=== PATIENT | female | born 2005 | race African-American/Black ===

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

== ENCOUNTER 2023-01-16 20:49 | Emergency (ER) | payer OTHER ==
[2023-01-16] MEDS ORDERED: Ondansetron PF 4 MG/2 ML Vial ONE (21:16)
[2023-01-16 21:49] LABS: #Monocytes 0.7 thou/uL (0.11-0.59); #Neutrophils 5.7 thou/uL (1.40-6.50); %Basophils 0.3 % (0.0-1.0); %Eosinophils 0.2 % (0.0-10.0); %Lymphocytes 31.5 % (28.0-48.0); %Monocytes 7.6 % (0.0-4.0); %Neutrophils 60.1 % (31.0-61.0); Hematocrit 41.5 % (36.0-47.0); Hemoglobin 13.1 g/dL (12.0-16.0); Mean Corpuscular HGB CONC 31.6 g/dL (32.0-36.0); Mean Corpuscular Hemoglobin 21.7 pg (25.0-35.0); Mean Corpuscular Volume 68.8 fl (78.0-98.0); Mean Platelet Volume 10.7 fL (7.4-10.4); Platelet Count 444 10x3/uL (130-400); RBC Distribution Width 19.1 % (11.5-14.5); Red Blood Cell (RBC) Count 6.03 mill/uL (4.00-5.20); White Blood Cell (WBC) Count 9.4 10x3/uL (4.8-10.8)
[2023-01-16 22:00] LABS: SARS-CoV-2 NAA Rapid Test Not Detected (NotDetected)
[2023-01-16] MEDS ORDERED: Ketorolac Tromethamine 30 MG/ML VIAL ONE (22:03)
[2023-01-16 22:18] LABS: Bilirubin Negative (Negative); Blood, Urine 3+ (Negative); CAUTI Indications for Culture Pelvic or flank pain; Clarity Turbid (Clear); Glucose, Urine (Dipstick) Normal (Negative); Ketone, Urine 60 mg/dL (Negative); Leukocyte Negative Leu/uL (Negative); Mucous/LPF Rare LPF (<2+); Nitrite Negative (Negative); Pregnancy Test - Urine (BHCG) Negative (Negative); Pregu Control Background? CLEAR/WHITE (CLR/WHITE); Pregu Control Bar Appear? YES (CONTROL BAR); Protein, Urine (Dipstick) 50 mg/dL (Neg-Trace); RBC/HPF Greater than 50 HPF (0-3); Specific Gravity 1.034 (1.002-1.036); Specific Gravity, Urine 1.034 (1.002-1.036); Urobilinogen Normal mg/dL (Less than 2)
[2023-01-16 22:23] LABS: ALT (SGPT) 18 U/L (8-55); Albumin 5.1 g/dL (3.5-5.0); Alkaline Phosphatase 70 U/L (40-100); Anion Gap 19 mmol/L (10-20); BUN (Urea Nitrogen) 23 mg/dL (8.4-21.0); Bilirubin, Total 0.5 mg/dL (0.2-1.2); Calc. Creatinine Clearance 0 mL/min (70-130); Calcium 10.7 mg/dL (7.8-10.44); Carbon Dioxide 20 mmol/L (22-29); Chloride 104 mmol/L (98-107); Estimated GFR 73; Globulin 4.3 g/dL (2.4-3.5); Glucose 109 mg/dL (70-105); Lipase 12 U/L (8-78); Potassium 3.1 mmol/L (3.5-5.1); Protein, Total 9.4 g/dL (6.0-8.3); Sodium 140 mmol/L (136-145)
[2023-01-16 22:25] LABS: Bacteria/HPF Rare-Few HPF (None Seen); Trichomonas/HPF 1+ HPF (None Seen); WBC/HPF 0-3 HPF (0-3)
[2023-01-16 22:27] LABS: Urine Culture Reflex No No
[2023-01-16 22:35] LABS: AST (SGOT) 21 U/L (5-30)
[2023-01-16] MEDS ORDERED: Promethazine 25 MG TAB ONE (23:07)
== END 2023-01-16 23:19 | disposition home or self-care (01) ==
LOC: ERS 20:49
DX: R11.2 Nausea with vomiting, unspecified (principal); I10 Essential (primary) hypertension; F17.290 Nicotine dependence, other tobacco product, uncomplicated; Z20.822 Contact with and (suspected) exposure to COVID-19
CPT/HCPCS: 36415; 80053; 81001; 81025; 83690; 85025; 96361; 96374; 96375; J1885; J2405; Q0169

== ENCOUNTER 2023-01-19 09:19 | Emergency (ER) | payer OTHER ==
[2023-01-19] MEDS ORDERED: Famotidine/PF 20 mg/2ml Vial ONE (10:09)
[2023-01-19] MEDS ORDERED: diphenhydrAMINE 50 MG/ML VIAL ONE (10:09)
[2023-01-19] MEDS ORDERED: Metoclopramide HCl 10 MG/2 ML VIAL ONE (10:09)
[2023-01-19 10:14] LABS: #Monocytes 0.4 thou/uL (0.11-0.59); #Neutrophils 3.2 thou/uL (1.40-6.50); %Basophils 0.5 % (0.0-1.0); %Eosinophils 0.5 % (0.0-10.0); %Lymphocytes 40.7 % (28.0-48.0); %Monocytes 6.7 % (0.0-4.0); %Neutrophils 51.3 % (31.0-61.0); Hematocrit 38.9 % (36.0-47.0); Hemoglobin 12.6 g/dL (12.0-16.0); Mean Corpuscular HGB CONC 32.4 g/dL (32.0-36.0); Mean Corpuscular Hemoglobin 22.5 pg (25.0-35.0); Mean Corpuscular Volume 69.3 fl (78.0-98.0); Mean Platelet Volume 10.4 fL (7.4-10.4); Platelet Count 377 10x3/uL (130-400); RBC Distribution Width 18.5 % (11.5-14.5); Red Blood Cell (RBC) Count 5.61 mill/uL (4.00-5.20); White Blood Cell (WBC) Count 6.2 10x3/uL (4.8-10.8)
[2023-01-19] MEDS ORDERED: Ketorolac Tromethamine 30 MG/ML VIAL ONE (10:19)
[2023-01-19 10:27] LABS: BHCG - Serum Negative (NEGATIVE); Pregs Control Background? CLEAR/WHITE (CLR/WHITE); Pregs Control Bar Appear? YES (CONTROL BAR)
[2023-01-19 10:36] LABS: Anisocytosis MODERATE=16-30 cells HPF (0-5); CellaVision Operator ID lab.dlt; Microcytosis SLIGHT = 6-15 cells HPF (0-5); Ovalocytes SLIGHT = 2-5 cells HPF (0-1); Platelet Adequacy Comment Platelets Normal; Polychromasia SLIGHT = 2-3 cells HPF (0-2); Schistocytes SLIGHT = 2-5 cells HPF (0-1); Target Cells SLIGHT = 2-5 cells HPF (0-1)
[2023-01-19 10:46] LABS: Bacteria/HPF None Seen HPF (None Seen); Bilirubin Negative (Negative); Blood, Urine 3+ (Negative); CAUTI Indications for Culture Dysuria,urgency,freq; Clarity Clear (Clear); Glucose, Urine (Dipstick) Normal (Negative); Ketone, Urine 100 mg/dL (Negative); Leukocyte Negative Leu/uL (Negative); Nitrite Negative (Negative); Protein, Urine (Dipstick) 30 mg/dL (Neg-Trace); RBC/HPF 0-3 HPF (0-3); Specific Gravity, Urine 1.025 (1.002-1.036); Urobilinogen Normal mg/dL (Less than 2); WBC/HPF 0-3 HPF (0-3); pH, Urine 7.5 (5.0-9.0)
[2023-01-19 10:50] LABS: Urine Culture Reflex No No
[2023-01-19 10:50] LABS: ALT (SGPT) 18 U/L (8-55); AST (SGOT) 23 U/L (5-30); Albumin 5.1 g/dL (3.5-5.0); Alkaline Phosphatase 69 U/L (40-100); Anion Gap 15 mmol/L (10-20); BUN (Urea Nitrogen) 13 mg/dL (8.4-21.0); Bilirubin, Total 0.9 mg/dL (0.2-1.2); Calc. Creatinine Clearance 0 mL/min (70-130); Calcium 10.2 mg/dL (7.8-10.44); Carbon Dioxide 24 mmol/L (22-29); Chloride 100 mmol/L (98-107); Estimated GFR 87; Globulin 3.9 g/dL (2.4-3.5); Glucose 104 mg/dL (70-105); Lipase 16 U/L (8-78); Magnesium 2.3 mg/dL (1.7-2.2); Potassium 3.1 mmol/L (3.5-5.1); Sodium 136 mmol/L (136-145)
[2023-01-19] MEDS ORDERED: Potassium Chloride 20 MEQ TAB ONE (11:15)
== END 2023-01-19 11:34 | disposition home or self-care (01) ==
LOC: ERS 09:19
DX: A59.00 Urogenital trichomoniasis, unspecified (principal); E87.6 Hypokalemia; R11.2 Nausea with vomiting, unspecified; R19.7 Diarrhea, unspecified; I10 Essential (primary) hypertension; F17.290 Nicotine dependence, other tobacco product, uncomplicated
CPT/HCPCS: 80053; 81001; 83690; 83735; 84703; 85025; 93005; 96361; 96374; 96375; J1200; J1885; J2765; S0028

== ENCOUNTER 2023-01-24 16:49 | Emergency (ER) | payer OTHER ==
[~2023-01-24 16:49] MED LIST changes: -Iopamidol-370 76% 500 ML 1 ML ONE; +Iopamidol-370 76% 500 ML MDV (1 ML CHARGE) ONE
[2023-01-24] MEDS ORDERED: Ondansetron PF 4 MG/2 ML Vial ONE (18:16)
[2023-01-24] MEDS ORDERED: Pantoprazole 40 MG VIAL ONE (18:18)
[2023-01-24] MEDS ORDERED: Dicyclomine 20 MG/2 ML VIAL ONE (18:18)
[2023-01-24 18:24] LABS: Bacteria/HPF None Seen HPF (None Seen); Bilirubin Negative (Negative); Blood, Urine Negative (Negative); CAUTI Indications for Culture Dysuria,urgency,freq; Clarity Clear (Clear); Glucose, Urine (Dipstick) Normal (Negative); Ketone, Urine 40 mg/dL (Negative); Leukocyte Negative Leu/uL (Negative); Nitrite Negative (Negative); Protein, Urine (Dipstick) 30 mg/dL (Neg-Trace); WBC/HPF 0-3 HPF (0-3)
[2023-01-24 18:25] LABS: Urine Culture Reflex No No
[2023-01-24 18:29] LABS: Amphetamine Not Detected (NotDetected); Barbiturates Screen Not Detected (NotDetected); Benzodiazepine Screen Not Detected (NotDetected); Cocaine Metabolite Screen Not Detected (NotDetected); Methadone Not Detected (NotDetected); Methamphetamine Not Detected (NotDetected); Opiate Screen Not Detected (NotDetected); Oxycodone Screen Not Detected (NotDetected); Phencyclidine (PCP) Not Detected (NotDetected); THC/Cannabinoid Screen Detected (NotDetected); Tricyclic Screen Not Detected (NotDetected)
[2023-01-24 18:39] LABS: BHCG - Serum Negative (NEGATIVE); Pregs Control Background? CLEAR/WHITE (CLR/WHITE); Pregs Control Bar Appear? YES (CONTROL BAR)
[2023-01-24 18:40] LABS: #Eosinphils 0.1 thou/uL (0.0-0.7); #Monocytes 0.8 thou/uL (0.11-0.59); %Basophils 0.5 % (0.0-1.0); %Eosinophils 0.9 % (0.0-10.0); %Lymphocytes 48.9 % (28.0-48.0); %Monocytes 10.2 % (0.0-4.0); %Neutrophils 39.2 % (31.0-61.0); Hematocrit 38.6 % (36.0-47.0); Hemoglobin 12.6 g/dL (12.0-16.0); Mean Corpuscular HGB CONC 32.6 g/dL (32.0-36.0); Mean Corpuscular Hemoglobin 22.6 pg (25.0-35.0); Mean Corpuscular Volume 69.3 fl (78.0-98.0); Mean Platelet Volume 10.7 fL (7.4-10.4); Platelet Count 351 10x3/uL (130-400); Red Blood Cell (RBC) Count 5.57 mill/uL (4.00-5.20); White Blood Cell (WBC) Count 7.6 10x3/uL (4.8-10.8)
[2023-01-24 19:06] LABS: ALT (SGPT) 15 U/L (8-55); AST (SGOT) 28 U/L (5-30); Albumin 5.1 g/dL (3.5-5.0); Alkaline Phosphatase 64 U/L (40-100); Anion Gap 17 mmol/L (10-20); BUN (Urea Nitrogen) 9 mg/dL (8.4-21.0); Bilirubin, Total 0.6 mg/dL (0.2-1.2); Calc. Creatinine Clearance 0 mL/min (70-130); Calcium 10.4 mg/dL (7.8-10.44); Carbon Dioxide 20 mmol/L (22-29); Chloride 101 mmol/L (98-107); Estimated GFR 91; Globulin 3.5 g/dL (2.4-3.5); Glucose 94 mg/dL (70-105); Lipase 19 U/L (8-78); Potassium 3.4 mmol/L (3.5-5.1); Protein, Total 8.6 g/dL (6.0-8.3); Sodium 135 mmol/L (136-145)
[2023-01-24 19:10] LABS: Anisocytosis SLIGHT = 6-15 cells HPF (0-5); Burr Cells SLIGHT = 2-5 cells HPF (0-1); CellaVision Operator ID LAB.KB; Elliptocytes SLIGHT = 2-5 cells HPF (0-1); Hypochromia SLIGHT = 6-15 cells HPF (0-5); Microcytosis SLIGHT = 6-15 cells HPF (0-5); Platelet Adequacy Comment Platelets Normal; Polychromasia SLIGHT = 2-3 cells HPF (0-2)
== END 2023-01-24 20:45 | disposition home or self-care (01) ==
LOC: ERS 16:49
DX: F12.188 Cannabis abuse with other cannabis-induced disorder (principal); I10 Essential (primary) hypertension; J45.909 Unspecified asthma, uncomplicated; F17.210 Nicotine dependence, cigarettes, uncomplicated
CPT/HCPCS: 74177; 80053; 80306; 81001; 83690; 84703; 85025; 93005; 96361; 96372; 96374; 96375; C9113; J2405; Q9967

== ENCOUNTER 2023-02-15 10:58 | Emergency (ER) | payer OTHER, SELFPAY ==
[2023-02-15] MEDS ORDERED: Ondansetron PF 4 MG/2 ML Vial ONE (11:27)
[2023-02-15] MEDS ORDERED: Acetaminophen 500 MG TAB ONE (11:27)
[2023-02-15] MEDS ORDERED: LORazepam 2 MG/ML SYR.(CARPUJECT) ONE (11:28)
[2023-02-15 12:56] LABS: SARS-CoV-2 NAA Rapid Test Not Detected (NotDetected)
== END 2023-02-15 13:20 | disposition home or self-care (01) ==
LOC: ERS 10:58
DX: F41.1 Generalized anxiety disorder (principal); E86.0 Dehydration; R11.2 Nausea with vomiting, unspecified; I10 Essential (primary) hypertension; F17.210 Nicotine dependence, cigarettes, uncomplicated; F17.290 Nicotine dependence, other tobacco product, uncomplicated
CPT/HCPCS: 96361; 96374; 96375; J2060; J2405

== ENCOUNTER 2023-02-16 10:35 | Inpatient (IN) | payer SELFPAY ==
[2023-02-16 11:13] LABS: #Monocytes 0.3 thou/uL (0.11-0.59); #Neutrophils 2.5 thou/uL (1.40-6.50); %Basophils 0.4 % (0.0-1.0); %Eosinophils 0.6 % (0.0-10.0); %Monocytes 6.4 % (0.0-4.0); Hematocrit 37.5 % (36.0-47.0); Mean Corpuscular Hemoglobin 23.1 pg (25.0-35.0); Mean Corpuscular Volume 72.1 fl (78.0-98.0); Mean Platelet Volume 9.6 fL (7.4-10.4); Platelet Count 329 10x3/uL (130-400); RBC Distribution Width 20.2 % (11.5-14.5); White Blood Cell (WBC) Count 4.8 10x3/uL (4.8-10.8)
[2023-02-16 11:39] LABS: ALT (SGPT) 17 U/L (8-55); AST (SGOT) 30 U/L (5-30); Albumin 4.9 g/dL (3.5-5.0); Alkaline Phosphatase 62 U/L (40-100); Anion Gap 16 mmol/L (10-20); BUN (Urea Nitrogen) 10 mg/dL (8.4-21.0); Bilirubin, Total 0.8 mg/dL (0.2-1.2); Calc. Creatinine Clearance 0 mL/min (70-130); Calcium 9.7 mg/dL (7.8-10.44); Carbon Dioxide 21 mmol/L (22-29); Chloride 105 mmol/L (98-107); Estimated GFR 92; Globulin 3.6 g/dL (2.4-3.5); Glucose 114 mg/dL (70-105); Lipase 13 U/L (8-78); Potassium 3.7 mmol/L (3.5-5.1); Protein, Total 8.5 g/dL (6.0-8.3); Sodium 138 mmol/L (136-145)
[2023-02-16 11:44] LABS: Bacteria/HPF None Seen HPF (None Seen); Bilirubin Negative (Negative); Blood, Urine 2+ (Negative); CAUTI Indications for Culture Pelvic or flank pain; Clarity Extra Turbid (Clear); Glucose, Urine (Dipstick) Normal (Negative); Ketone, Urine 40 mg/dL (Negative); Leukocyte Negative Leu/uL (Negative); Nitrite Negative (Negative); Protein, Urine (Dipstick) 30 mg/dL (Neg-Trace); Specific Gravity, Urine 1.029 (1.002-1.036); Squamous Epithelial 21-50 HPF (0-3); WBC/HPF None Seen HPF (0-3)
[2023-02-16 11:45] LABS: Pregnancy Test - Urine (BHCG) Negative (Negative); Pregu Control Background? CLEAR/WHITE (CLR/WHITE); Pregu Control Bar Appear? YES (CONTROL BAR); Specific Gravity 1.029 (1.002-1.036)
[2023-02-16 11:46] LABS: Urine Culture Reflex No No
[2023-02-16 11:46] LABS: Anisocytosis MODERATE=16-30 cells HPF (0-5); CellaVision Operator ID LAB.KB; Microcytosis SLIGHT = 6-15 cells HPF (0-5); Ovalocytes SLIGHT = 2-5 cells HPF (0-1); Platelet Adequacy Comment Platelets Normal; Polychromasia SLIGHT = 2-3 cells HPF (0-2)
[2023-02-16] MEDS ORDERED: Ondansetron PF 4 MG/2 ML Vial ONE ×2 (12:37→13:56)
[2023-02-16] MEDS ORDERED: Acetaminophen 325 MG TAB ONE (12:37)
[2023-02-16 15:00] LABS: Lactic Acid 1.2 mmol/L (0.5-2.2)
[2023-02-16 15:06] LABS: Acetaminophen Less than 10 mcg/mL (10.0-30.0); Alcohol Less than 10.0 mg/dL (Less than 10); Salicylate Less than 8.0 mg/dL (15.0-30.0)
[2023-02-16 15:48] LABS: Amphetamine Not Detected (NotDetected); Barbiturates Screen Not Detected (NotDetected); Benzodiazepine Screen Detected (NotDetected); Cocaine Metabolite Screen Not Detected (NotDetected); Methadone Not Detected (NotDetected); Methamphetamine Not Detected (NotDetected); Opiate Screen Not Detected (NotDetected); Oxycodone Screen Not Detected (NotDetected); Phencyclidine (PCP) Not Detected (NotDetected); THC/Cannabinoid Screen Detected (NotDetected); Tricyclic Screen Not Detected (NotDetected)
[2023-02-16] MEDS ORDERED: Acetaminophen 325 MG TAB PO PRN (15:53)
[2023-02-16] MEDS ORDERED: Mag-Al 1200 mg/1200 mg/30 ML UDCUP PO PRN (15:53)
[2023-02-16] MEDS ORDERED: Ondansetron PF 4 MG/2 ML Vial IVP PRN ×2 (15:53→16:15)
[2023-02-16] MEDS ORDERED: Lorazepam 2 MG/ML VIAL SLOW IVP PRN (15:53)
[2023-02-16] MEDS ORDERED: Ondansetron ODT 4 MG TAB SL PRN (16:15)
[2023-02-16] MEDS: Sucralfate 1 GM TAB PO SCH ×2 (17:25→20:02)
[2023-02-16] MEDS: Pantoprazole 40 MG VIAL IVP SCH (17:25)
[2023-02-16] MEDS: Metoclopramide HCl 10 MG/2 ML VIAL IVP PRN (17:25)
[2023-02-16] MEDS: Sodium Chloride 0.9% 1,000 ML IV SCH (17:25)
[2023-02-16] MEDS: Nicotine 7 MG PATCH TD SCH (17:40)
[2023-02-16 18:33] VITALS: BMI 25.6
[2023-02-16] MEDS: busPIRone HCl 5 MG TAB PO SCH (20:02)
[2023-02-16] MEDS: Melatonin 3 MG TAB PO PRN (20:02)
[2023-02-17] MEDS: Sodium Chloride 0.9% 1,000 ML IV SCH ×2 (00:28→12:21)
[2023-02-17] MEDS: Metoclopramide HCl 10 MG/2 ML VIAL IVP PRN ×4 (00:28→17:46)
[2023-02-17 06:09] LABS: #Eosinphils 0.1 thou/uL (0.0-0.7); #Monocytes 0.4 thou/uL (0.11-0.59); #Neutrophils 2.3 thou/uL (1.40-6.50); %Basophils 0.3 % (0.0-1.0); %Eosinophils 1.9 % (0.0-10.0); %Lymphocytes 53.9 % (28.0-48.0); %Monocytes 7.1 % (0.0-4.0); %Neutrophils 36.5 % (31.0-61.0); Hematocrit 31.8 % (36.0-47.0); Hemoglobin 9.9 g/dL (12.0-16.0); Mean Corpuscular HGB CONC 31.1 g/dL (32.0-36.0); Mean Corpuscular Hemoglobin 22.9 pg (25.0-35.0); Mean Corpuscular Volume 73.4 fl (78.0-98.0); Platelet Count 271 10x3/uL (130-400); RBC Distribution Width 19.9 % (11.5-14.5); Red Blood Cell (RBC) Count 4.33 mill/uL (4.00-5.20); White Blood Cell (WBC) Count 6.2 10x3/uL (4.8-10.8)
[2023-02-17 06:33] LABS: Anion Gap 12 mmol/L (10-20); BUN (Urea Nitrogen) 5 mg/dL (8.4-21.0); Calc. Creatinine Clearance 115 mL/min (70-130); Calcium 8.6 mg/dL (7.8-10.44); Carbon Dioxide 23 mmol/L (22-29); Chloride 107 mmol/L (98-107); Estimated GFR 110; Glucose 92 mg/dL (70-105); Potassium 3.2 mmol/L (3.5-5.1); Sodium 139 mmol/L (136-145)
[2023-02-17] MEDS: busPIRone HCl 5 MG TAB PO SCH ×3 (07:53→19:43)
[2023-02-17] MEDS: Sucralfate 1 GM TAB PO SCH ×5 (07:53→19:43)
[2023-02-17] MEDS ORDERED: Potassium Chloride 20 MEQ TAB PO SCH (09:00)
[2023-02-17] MEDS: Nicotine 7 MG PATCH TD SCH (17:16)
[2023-02-17] MEDS: Pantoprazole 40 MG VIAL IVP SCH (17:39)
[2023-02-17] MEDS: Melatonin 3 MG TAB PO PRN (19:43)
[2023-02-18] MEDS: Metoclopramide HCl 10 MG/2 ML VIAL IVP PRN ×2 (01:25→07:56)
[2023-02-18] MEDS: Sodium Chloride 0.9% 1,000 ML IV SCH ×2 (01:28→09:59)
[2023-02-18] MEDS: Sucralfate 1 GM TAB PO SCH (07:56)
[2023-02-18] MEDS: busPIRone HCl 5 MG TAB PO SCH (07:56)
[2023-02-18 08:33] VITALS: BP 132/79; TEMP 98.1
[2023-02-18 09:07] LABS: #Eosinphils 0.1 thou/uL (0.0-0.7); #Monocytes 0.5 thou/uL (0.11-0.59); #Neutrophils 3.2 thou/uL (1.40-6.50); %Basophils 0.5 % (0.0-1.0); %Eosinophils 0.9 % (0.0-10.0); %Lymphocytes 42.2 % (28.0-48.0); %Monocytes 7.4 % (0.0-4.0); %Neutrophils 48.7 % (31.0-61.0); Hematocrit 36.5 % (36.0-47.0); Hemoglobin 11.5 g/dL (12.0-16.0); Mean Corpuscular HGB CONC 31.5 g/dL (32.0-36.0); Mean Corpuscular Hemoglobin 22.5 pg (25.0-35.0); Mean Corpuscular Volume 71.6 fl (78.0-98.0); Mean Platelet Volume 10.2 fL (7.4-10.4); Platelet Count 345 10x3/uL (130-400); RBC Distribution Width 20.3 % (11.5-14.5); White Blood Cell (WBC) Count 6.6 10x3/uL (4.8-10.8)
[2023-02-18 09:29] LABS: Anion Gap 17 mmol/L (10-20); BUN (Urea Nitrogen) 5 mg/dL (8.4-21.0); Calc. Creatinine Clearance 112 mL/min (70-130); Calcium 9.7 mg/dL (7.8-10.44); Carbon Dioxide 18 mmol/L (22-29); Chloride 107 mmol/L (98-107); Estimated GFR 107; Glucose 99 mg/dL (70-105); Potassium 3.4 mmol/L (3.5-5.1); Sodium 139 mmol/L (136-145)
[2023-02-18 10:04] LABS: Anisocytosis MARKED = >30 cells HPF (0-5); Burr Cells SLIGHT = 2-5 cells HPF (0-1); CellaVision Operator ID LAB.CMB; Large Platelets 2.7 % (0-5); Macrocytosis SLIGHT = 6-15 cells HPF (0-5); Ovalocytes SLIGHT = 2-5 cells HPF (0-1); Platelet Adequacy Comment Platelets Normal; Platelet Clumps 0.9 % (0-5); Polychromasia SLIGHT = 2-3 cells HPF (0-2); RBC Morphology 2
== END 2023-02-18 12:15 | disposition home or self-care (01) | DRG 392 ==
LOC: ERS 10:35 → T4-A 14:26 → OBSVTOIN 02-17 11:48
PROVIDERS: ADMIT Family Medicine; ATTEND Hospitalist
DX: K59.00 Constipation, unspecified (principal); R45.851 Suicidal ideations; F41.9 Anxiety disorder, unspecified; K21.9 Gastro-esophageal reflux disease without esophagitis; J45.909 Unspecified asthma, uncomplicated; Z79.899 Other long term (current) drug therapy; Z83.3 Family history of diabetes mellitus; F17.200 Nicotine dependence, unspecified, uncomplicated; I10 Essential (primary) hypertension; R11.2 Nausea with vomiting, unspecified; F12.20 Cannabis dependence, uncomplicated; R31.0 Gross hematuria; Z71.6 Tobacco abuse counseling
CPT/HCPCS: 36415; 74176; 80048; 80053; 80306; 80307; 81001; 81025; 83605; 83690; 84443; 85025; 96361; 96374; 96375; 96376; C9113; G0378; J2060; J2405; J2765; J7050

== ENCOUNTER 2023-09-04 09:54 | Emergency (ER) | payer SELFPAY ==
[2023-09-04 10:55] LABS: #Basophils Less than 0.03 10x3/uL (0.0-0.2); %Basophils 0.1 % (0.0-1.0); %Eosinophils 0.5 % (0.0-10.0); %Lymphocytes 38.4 % (28.0-48.0); %Monocytes 6.1 % (0.0-4.0); %Neutrophils 54.6 % (31.0-61.0); Hematocrit 39.9 % (36.0-47.0); Hemoglobin 12.8 g/dL (12.0-16.0); Mean Corpuscular HGB CONC 32.1 g/dL (32.0-36.0); Mean Corpuscular Hemoglobin 22.6 pg (25.0-35.0); Mean Corpuscular Volume 70.5 fL (78.0-98.0); Mean Platelet Volume 9.7 fL (7.4-10.4); Platelet Count 408 10x3/uL (130-400); RBC Distribution Width 17.7 % (11.5-14.5); Red Blood Cell (RBC) Count 5.66 mill/uL (4.00-5.20)
[2023-09-04 11:19] LABS: ALT (SGPT) 19 U/L (8-55); AST (SGOT) 23 U/L (5-30); Albumin 4.4 g/dL (3.5-5.0); Alkaline Phosphatase 74 U/L (40-100); Anion Gap 18 mmol/L (10-20); BUN (Urea Nitrogen) 7 mg/dL (8.4-21.0); Bilirubin, Total 0.8 mg/dL (0.2-1.2); Calc. Creatinine Clearance 0 mL/min (70-130); Calcium 10.2 mg/dL (7.8-10.44); Carbon Dioxide 19 mmol/L (22-29); Chloride 105 mmol/L (98-107); Estimated GFR 106; Globulin 3.8 g/dL (2.4-3.5); Glucose 97 mg/dL (70-105); Lipase 14 U/L (8-78); Potassium 3.1 mmol/L (3.5-5.1); Protein, Total 8.2 g/dL (6.0-8.3); Sodium 139 mmol/L (136-145)
[2023-09-04 11:28] LABS: Elliptocytes SLIGHT = 2-5 cells HPF (0-1); Microcytosis MODERATE=15-30 cells HPF (0-5); Ovalocytes SLIGHT = 2-5 cells HPF (0-1); Platelet Adequacy Comment Platelets Increased; Polychromasia SLIGHT = 2-3 cells HPF (0-2)
[2023-09-04] MEDS ORDERED: Potassium Chloride 20 MEQ TAB ONE (11:38)
[2023-09-04 11:53] LABS: BHCG - Serum Negative (NEGATIVE); Pregs Control Background? CLEAR/WHITE (CLR/WHITE); Pregs Control Bar Appear? YES (CONTROL BAR)
[2023-09-04 12:16] LABS: Pregnancy Test - Urine (BHCG) Negative (Negative)
[2023-09-04 12:17] LABS: Pregu Control Background? CLEAR/WHITE (CLR/WHITE); Pregu Control Bar Appear? YES (CONTROL BAR)
[2023-09-04 12:19] LABS: Bacteria/HPF None Seen HPF (None Seen); Bilirubin Negative (Negative); Blood, Urine 2+ (Negative); CAUTI Indications for Culture Pelvic or flank pain; Clarity Clear (Clear); Glucose, Urine (Dipstick) Normal (Negative); Ketone, Urine 100 mg/dL (Negative); Leukocyte Negative Leu/uL (Negative); Nitrite Negative (Negative); Protein, Urine (Dipstick) 50 mg/dL (Neg-Trace); Urobilinogen Normal mg/dL (Less than 2); WBC/HPF 0-3 HPF (0-3)
[2023-09-04 12:23] LABS: Urine Culture Reflex No No
== END 2023-09-04 13:13 | disposition home or self-care (01) ==
LOC: ERS 09:54
DX: R11.2 Nausea with vomiting, unspecified (principal); E87.6 Hypokalemia; I10 Essential (primary) hypertension; E03.9 Hypothyroidism, unspecified; Z55.0 Illiteracy and low-level literacy
CPT/HCPCS: 36415; 80053; 81001; 81025; 83690; 84703; 85025; 99284

== ENCOUNTER 2023-10-29 08:12 | Emergency (ER) | payer OTHER, SELFPAY ==
[2023-10-29] MEDS ORDERED: Ondansetron PF 4 MG/2 ML Vial ONE (08:23)
[2023-10-29] MEDS ORDERED: Ketorolac Tromethamine 30 MG (1 mL) VIAL ONE (08:23)
[2023-10-29] MEDS ORDERED: Lorazepam 2 MG/ML VIAL ONE (08:24)
[2023-10-29 09:19] LABS: BHCG - Serum Negative (NEGATIVE)
[2023-10-29 09:20] LABS: Pregs Control Background? CLEAR/WHITE (CLR/WHITE); Pregs Control Bar Appear? YES (CONTROL BAR)
[2023-10-29 09:25] LABS: ALT (SGPT) 35 U/L (8-55); AST (SGOT) 25 U/L (5-34); Albumin 4.4 g/dL (3.5-5.0); Alkaline Phosphatase 73 U/L (40-100); Anion Gap 17 mmol/L (10-20); BUN (Urea Nitrogen) 27 mg/dL (7.0-18.7); Bilirubin, Total 0.7 mg/dL (0.2-1.2); CK (CPK) 88 U/L (29-168); Calc. Creatinine Clearance 0 mL/min (70-130); Calcium 9.9 mg/dL (7.8-10.44); Carbon Dioxide 19 mmol/L (22-29); Chloride 109 mmol/L (98-107); Estimated GFR 98; Globulin 3.9 g/dL (2.4-3.5); Glucose 106 mg/dL (70-105); Lipase 11 U/L (8-78); Potassium 3.4 mmol/L (3.5-5.1); Protein, Total 8.3 g/dL (6.0-8.3); Sodium 142 mmol/L (136-145)
[2023-10-29 09:40] LABS: #Basophils Less than 0.03 10x3/uL (0.0-0.2); #Eosinphils Less than 0.03 10x3/uL (0.0-0.7); %Basophils 0.1 % (0.0-1.0); %Eosinophils 0.1 % (0.0-10.0); %Lymphocytes 24.2 % (28.0-48.0); %Monocytes 9.8 % (0.0-4.0); %Neutrophils 65.7 % (31.0-61.0); Hematocrit 37.3 % (36.0-47.0); Hemoglobin 11.9 g/dL (12.0-16.0); Mean Corpuscular HGB CONC 31.9 g/dL (32.0-36.0); Mean Corpuscular Hemoglobin 22.3 pg (25.0-35.0); Mean Corpuscular Volume 69.9 fL (78.0-98.0); Mean Platelet Volume 10.5 fL (7.4-10.4); Platelet Count 355 10x3/uL (130-400); RBC Distribution Width 17.3 % (11.5-14.5); Red Blood Cell (RBC) Count 5.34 mill/uL (4.00-5.20)
[2023-10-29 10:15] LABS: Amphetamine Not Detected (NotDetected); Barbiturates Screen Not Detected (NotDetected); Benzodiazepine Screen Detected (NotDetected); Cocaine Metabolite Screen Not Detected (NotDetected); Methadone Not Detected (NotDetected); Methamphetamine Not Detected (NotDetected); Opiate Screen Not Detected (NotDetected); Oxycodone Screen Not Detected (NotDetected); Phencyclidine (PCP) Not Detected (NotDetected); THC/Cannabinoid Screen Detected (NotDetected); Tricyclic Screen Not Detected (NotDetected)
[2023-10-29 10:16] LABS: Bacteria/HPF 1+ HPF (None Seen); Bilirubin Negative (Negative); Blood, Urine Trace (Negative); CAUTI Indications for Culture Pelvic or flank pain; Clarity Slightly Cloudy (Clear); Glucose, Urine (Dipstick) Normal (Negative); Ketone, Urine 100 mg/dL (Negative); Leukocyte 25 Leu/uL (Negative); Mucous/LPF 2+ LPF (<2+); Nitrite Negative (Negative); Protein, Urine (Dipstick) 70 mg/dL (Neg-Trace); Specific Gravity, Urine 1.039 (1.002-1.036)
[2023-10-29 10:17] LABS: Urine Culture Reflex No No
== END 2023-10-29 12:34 | disposition home or self-care (01) ==
LOC: ERS 08:12
DX: F43.0 Acute stress reaction (principal); F41.9 Anxiety disorder, unspecified; R11.2 Nausea with vomiting, unspecified; I10 Essential (primary) hypertension; Z79.899 Other long term (current) drug therapy
CPT/HCPCS: 36415; 80053; 80306; 81001; 82550; 83690; 84703; 85025; 96361; 96374; 96375; J1885; J2060; J2405

== ENCOUNTER 2023-10-30 14:22 | Emergency (ER) | payer SELFPAY ==
[2023-10-30 16:41] LABS: #Basophils Less than 0.03 10x3/uL (0.0-0.2); #Eosinphils Less than 0.03 10x3/uL (0.0-0.7); %Basophils 0.2 % (0.0-1.0); %Lymphocytes 47.3 % (28.0-48.0); %Monocytes 8.8 % (0.0-4.0); %Neutrophils 43.6 % (31.0-61.0); Hematocrit 37.5 % (36.0-47.0); Hemoglobin 12.1 g/dL (12.0-16.0); Mean Corpuscular HGB CONC 32.3 g/dL (32.0-36.0); Mean Corpuscular Volume 68.3 fL (78.0-98.0); Mean Platelet Volume 10.9 fL (7.4-10.4); Platelet Count 384 10x3/uL (130-400); RBC Distribution Width 16.9 % (11.5-14.5); Red Blood Cell (RBC) Count 5.49 mill/uL (4.00-5.20)
[2023-10-30 16:53] LABS: ALT (SGPT) 26 U/L (8-55); AST (SGOT) 19 U/L (5-34); Albumin 4.3 g/dL (3.5-5.0); Alkaline Phosphatase 74 U/L (40-100); Anion Gap 17 mmol/L (10-20); BUN (Urea Nitrogen) 16 mg/dL (7.0-18.7); Bilirubin, Total 0.8 mg/dL (0.2-1.2); Calc. Creatinine Clearance 0 mL/min (70-130); Calcium 10.1 mg/dL (7.8-10.44); Carbon Dioxide 24 mmol/L (22-29); Chloride 103 mmol/L (98-107); Estimated GFR 103; Globulin 3.8 g/dL (2.4-3.5); Glucose 95 mg/dL (70-105); Lipase 15 U/L (8-78); Protein, Total 8.1 g/dL (6.0-8.3); Sodium 141 mmol/L (136-145)
[2023-10-30 17:13] LABS: Free T4 (Free Thyroxine) 2.48 ng/dL (0.70-1.48); Thyroid Stimulating Hormone Less than 0.0083 uIU/mL (0.35-4.94)
== END 2023-10-30 16:30 | disposition left against medical advice (07) ==
LOC: ERS 14:22
DX: Z53.21 Procedure and treatment not carried out due to patient leaving prior to being seen by health care provider (principal)
CPT/HCPCS: 36415; 80053; 83690; 84439; 84443; 84481; 85025

== ENCOUNTER 2023-10-31 06:55 | Emergency (ER) | payer SELFPAY ==
[2023-10-31] MEDS ORDERED: Haloperidol Lactate 5 MG/ML VIAL ONE ×2 (07:26→08:40)
[2023-10-31] MEDS ORDERED: Potassium Chloride 20 MEQ (100 mL) BAG ONE (07:34)
[2023-10-31 07:40] LABS: BHCG - Serum Negative (NEGATIVE); Pregs Control Background? CLEAR/WHITE (CLR/WHITE); Pregs Control Bar Appear? YES (CONTROL BAR)
[2023-10-31 07:45] LABS: ALT (SGPT) 25 U/L (8-55); AST (SGOT) 20 U/L (5-34); Albumin 4.5 g/dL (3.5-5.0); Alkaline Phosphatase 70 U/L (40-100); Anion Gap 17 mmol/L (10-20); BUN (Urea Nitrogen) 17 mg/dL (7.0-18.7); Calc. Creatinine Clearance 0 mL/min (70-130); Calcium 10.1 mg/dL (7.8-10.44); Carbon Dioxide 22 mmol/L (22-29); Chloride 105 mmol/L (98-107); Estimated GFR 105; Globulin 3.8 g/dL (2.4-3.5); Glucose 99 mg/dL (70-105); Lipase 17 U/L (8-78); Potassium 3.1 mmol/L (3.5-5.1); Protein, Total 8.3 g/dL (6.0-8.3); Sodium 141 mmol/L (136-145)
[2023-10-31 07:49] LABS: #Basophils Less than 0.03 10x3/uL (0.0-0.2); #Eosinphils Less than 0.03 10x3/uL (0.0-0.7); %Basophils 0.3 % (0.0-1.0); %Lymphocytes 49.6 % (28.0-48.0); %Monocytes 7.1 % (0.0-4.0); %Neutrophils 42.7 % (31.0-61.0); Hematocrit 37.1 % (36.0-47.0); Mean Corpuscular HGB CONC 32.3 g/dL (32.0-36.0); Mean Corpuscular Hemoglobin 22.6 pg (25.0-35.0); Mean Corpuscular Volume 69.7 fL (78.0-98.0); Mean Platelet Volume 10.3 fL (7.4-10.4); Platelet Count 380 10x3/uL (130-400); Red Blood Cell (RBC) Count 5.32 mill/uL (4.00-5.20)
[2023-10-31] MEDS ORDERED: Potassium Chloride 20 MEQ TAB ONE (09:39)
[2023-10-31] MEDS ORDERED: Ketorolac Tromethamine 30 MG (1 mL) VIAL ONE (10:04)
== END 2023-10-31 11:19 | disposition home or self-care (01) ==
LOC: ERS 06:55
DX: R11.11 Vomiting without nausea (principal); F12.90 Cannabis use, unspecified, uncomplicated; R00.0 Tachycardia, unspecified; Z75.3 Unavailability and inaccessibility of health-care facilities
CPT/HCPCS: 36415; 80053; 83690; 84703; 85025; 93005; 96374; 96375; J1630; J1885; J3480

== ENCOUNTER 2024-01-02 13:57 | Inpatient (IN) | payer SELFPAY ==
[2024-01-02 14:53] LABS: #Basophils Less than 0.03 10x3/uL (0.0-0.2); %Basophils 0.2 % (0.0-1.0); %Eosinophils 0.7 % (0.0-10.0); %Lymphocytes 35.3 % (28.0-48.0); %Neutrophils 56.6 % (31.0-61.0); Hematocrit 34.5 % (36.0-47.0); Hemoglobin 10.5 g/dL (12.0-16.0); Mean Corpuscular HGB CONC 30.4 g/dL (32.0-36.0); Mean Corpuscular Volume 72.2 fL (78.0-98.0); Mean Platelet Volume 9.9 fL (7.4-10.4); Platelet Count 322 10x3/uL (130-400); RBC Distribution Width 16.7 % (11.5-14.5); Red Blood Cell (RBC) Count 4.78 mill/uL (4.00-5.20)
[2024-01-02 15:03] LABS: ALT (SGPT) 21 U/L (8-55); AST (SGOT) 21 U/L (5-34); Albumin 3.6 g/dL (3.5-5.0); Alkaline Phosphatase 77 U/L (40-100); Anion Gap 17 mmol/L (10-20); BUN (Urea Nitrogen) 14 mg/dL (7.0-18.7); Bilirubin, Total 0.4 mg/dL (0.2-1.2); Calc. Creatinine Clearance 0 mL/min (70-130); Calcium 10.1 mg/dL (7.8-10.44); Carbon Dioxide 22 mmol/L (22-29); Chloride 106 mmol/L (98-107); Estimated GFR 91; Globulin 3.8 g/dL (2.4-3.5); Glucose 140 mg/dL (70-105); Potassium 3.8 mmol/L (3.5-5.1); Protein, Total 7.4 g/dL (6.0-8.3); Sodium 141 mmol/L (136-145)
[2024-01-02 15:09] LABS: Troponin I Less than 0.010 ng/mL (< 0.028)
[2024-01-02 15:25] LABS: Anisocytosis SLIGHT = 6-15 cells HPF (0-5); Microcytosis SLIGHT = 6-15 cells HPF (0-5); Ovalocytes SLIGHT = 2-5 cells HPF (0-1); Platelet Adequacy Comment Platelets Normal; Polychromasia SLIGHT = 2-3 cells HPF (0-2); Target Cells SLIGHT = 2-5 cells HPF (0-1)
[2024-01-02 17:34] LABS: BHCG - Serum Negative (NEGATIVE); Pregs Control Background? CLEAR/WHITE (CLR/WHITE); Pregs Control Bar Appear? YES (CONTROL BAR)
[2024-01-02] MEDS ORDERED: Ketorolac Tromethamine 30 MG (1 mL) VIAL ONE (18:01)
[2024-01-02 18:14] LABS: Free T4 (Free Thyroxine) 2.08 ng/dL (0.70-1.48)
[2024-01-02] MEDS ORDERED: Ondansetron PF 4 MG/2 ML Vial IVP PRN (18:41)
[2024-01-02] MEDS ORDERED: Ondansetron ODT 4 MG TAB PO PRN (18:41)
[2024-01-02] MEDS ORDERED: Acetaminophen 650 MG Suppository PR PRN (18:41)
[2024-01-02] MEDS ORDERED: busPIRone HCl 10 MG TAB PO PRN (19:17)
[2024-01-02] MEDS: Atenolol 50 MG TAB PO SCH (20:23)
[2024-01-02] MEDS: Methimazole 10 MG TAB PO SCH (20:24)
[2024-01-02] MEDS ORDERED: Famotidine 20 MG TAB ONE (22:25)
[2024-01-02] MEDS ORDERED: Acetaminophen 325 MG TAB ONE (22:25)
[2024-01-02] MEDS: Famotidine 20 MG TAB PO SCH (22:28)
[2024-01-02] MEDS: Acetaminophen 325 MG TAB PO PRN (22:28)
[2024-01-02] MEDS: busPIRone HCl 10 MG TAB PO SCH (23:06)
[2024-01-03 02:43] LABS: Troponin I Less than 0.010 ng/mL (< 0.028)
[2024-01-03 03:48] LABS: #Basophils Less than 0.03 10x3/uL (0.0-0.2); %Basophils 0.3 % (0.0-1.0); %Eosinophils 2.5 % (0.0-10.0); %Monocytes 10.6 % (0.0-4.0); %Neutrophils 36.5 % (31.0-61.0); Hematocrit 32.6 % (36.0-47.0); Hemoglobin 9.7 g/dL (12.0-16.0); Mean Corpuscular HGB CONC 29.8 g/dL (32.0-36.0); Mean Corpuscular Volume 74.1 fL (78.0-98.0); Mean Platelet Volume 10.8 fL (7.4-10.4); Platelet Count 300 10x3/uL (130-400); RBC Distribution Width 16.8 % (11.5-14.5)
[2024-01-03] MEDS ORDERED: Acetaminophen 325 MG TAB ONE ×2 (04:04→09:18)
[2024-01-03 04:38] LABS: Anion Gap 12 mmol/L (10-20); BUN (Urea Nitrogen) 11 mg/dL (7.0-18.7); Calc. Creatinine Clearance 125 mL/min (70-130); Calcium 9.2 mg/dL (7.8-10.44); Carbon Dioxide 23 mmol/L (22-29); Chloride 110 mmol/L (98-107); Estimated GFR 123; Glucose 100 mg/dL (70-105); Potassium 3.9 mmol/L (3.5-5.1); Sodium 141 mmol/L (136-145)
[2024-01-03] MEDS ORDERED: Famotidine 20 MG TAB ONE (09:18)
[2024-01-03] MEDS ORDERED: Enoxaparin 40 MG (0.4 mL) SYRINGE ONE (09:19)
[2024-01-03] MEDS: Enoxaparin 40 MG (0.4 mL) SYRINGE SC SCH (11:23)
[2024-01-03] MEDS: Atenolol 50 MG TAB PO SCH (12:02)
[2024-01-03] MEDS: Methimazole 5 MG TAB PO SCH (12:03)
[2024-01-03 14:29] VITALS: BMI 26.0
[2024-01-03 19:41] LABS: Lactic Acid 1.28 mmol/L (0.5-2.2)
[2024-01-03 19:51] LABS: Troponin I 0.013 ng/mL (< 0.028)
[2024-01-04] MEDS: Amoxicillin/Potassium Clav 875 MG TAB PO SCH (10:13)
[2024-01-04 12:23] VITALS: BP 113/73; TEMP 98.1
== END 2024-01-04 14:32 | disposition home or self-care (01) | DRG 645 ==
LOC: ERS 13:57 → SUATTDRO 13:57 → ERHOLD 18:48 → 2SW 01-03 14:13 → OBSVTOIN 01-04 08:08
PROVIDERS: ADMIT Family Medicine; ATTEND Student in an Organized Health Care Education/Training Program
DX: E05.90 Thyrotoxicosis, unspecified without thyrotoxic crisis or storm (principal); J45.909 Unspecified asthma, uncomplicated; F17.200 Nicotine dependence, unspecified, uncomplicated; F12.10 Cannabis abuse, uncomplicated; I10 Essential (primary) hypertension; L02.424 Furuncle of left upper limb; Z79.899 Other long term (current) drug therapy; Z91.148 Patient's other noncompliance with medication regimen for other reason
CPT/HCPCS: 36415; 71045; 80048; 80053; 83605; 84439; 84443; 84481; 84484; 84703; 85025; 93005; 96361; 96374; 97139; G0378; J1650; J1885